=== PATIENT | male | born 1990 | race African-American/Black ===

== ENCOUNTER 2025-01-29 19:18 | Emergency (ER) | payer SELFPAY ==
[~2025-01-29] VITALS: Ht 180.3 cm; Wt 64.9 kg
[2025-01-29 19:18] VITALS: BP 122/44
[2025-01-29] MEDS ORDERED: DOXY100C5 PO (19:47)
[2025-01-29 19:49] LABS: *BILIRUBIN,URIN NEGATIVE (NEGATIVE); *BLOOD, URINE 2+ (NEGATIVE); *CLARITY,URINE SLIGHTLY CLOUDY (CLEAR); *COLOR,URINE YELLOW (YELLOW); *KETONES,URINE NEGATIVE (NEGATIVE); *PROTEIN,URINE 2+ (NEGATIVE); *UROBILINOGEN,URINE 1.0 E.U./dl (NORMAL); LEUKOCYTE ESTERASE ,URINE 3+ (NEGATIVE); NITRITE, URINE NEGATIVE (NEGATIVE); UGLUCOSE NEGATIVE (NEGATIVE)
[2025-01-29] MEDS ORDERED: CIPR500S2 PO (19:59)
[2025-01-29] MEDS ORDERED: DOXYCYCLINE HYCLATE 100 MG TABLET ONE (20:02)
[2025-01-29] MEDS ORDERED: CEFTRIAXONE 500 MG VIAL ONE (20:02)
[2025-01-29] MEDS ORDERED: PHEN-895 PO (20:04)
[2025-01-29] MEDS ORDERED: PHENAZOPYRIDINE HCL 100 MG TABLET ONE (20:09)
[2025-01-29] MEDS: DOXYCYCLINE HYCLATE 100 MG TABLET PO ONE (20:15)
[2025-01-29] MEDS: PHENAZOPYRIDINE HCL 100 MG TABLET PO ONE (20:15)
[2025-01-29] MEDS: CEFTRIAXONE 500 MG VIAL IM ONE (20:15)
[2025-01-29 20:20] VITALS: BP 120/59; O2SAT 99
[2025-01-29] MEDS ORDERED: CIPR500T5 PO (20:37)
[2025-01-31 15:11] LABS: *CHLAMYDIA NAA Positive (Negative); *GC NAA Positive (Negative); *TRIC.VAG. NAA Negative (Negative)
== END 2025-01-29 20:20 | disposition home or self-care (01) ==
LOC: ER 19:39
DX: N34.2 Other urethritis (principal); F17.210 Nicotine dependence, cigarettes, uncomplicated; Z72.51 High risk heterosexual behavior
CPT/HCPCS: 99283; 81001; 87086; 96372; 87491; J0696; A4606; A4663